=== PATIENT | male | born 1990 | race American Indian/Alaskan Native ===

== ENCOUNTER 2017-12-18 22:36 | Emergency (ER) | payer OTHER ==
[2017-12-18 23:32] VITALS: TEMP 98.6; BMI 27.9
[2017-12-18] MEDS ORDERED: DiphenhydrAMINE 50 mg/ml Inj IVP STA (23:56)
[2017-12-18] MEDS ORDERED: Sodium Chloride 0.9% 1,000 ML IV STA (23:56)
--- NOTE | 2017-12-19 00:10 | ED PDOC ---
Arrival/HPI <Rikki Bustamante - Last Filed: 12/19/17 01:18> - General Historian: Patient - History of Present Illness Narrative History of Present Illness (Text): 12/19/17 00:08 27 yo M complaining of intermittent throbbing L sided headache associated with photosensitivity and phonosensitivity x 1 month. States that there are no exacerbating factors, the headache last for several hours, takes motrin 800 mg with improvement but then the headache recurs. States that he had similar headaches as a teen, at 12 yo he had to see a neurologist, had CT of his head which were normal and was Dx with migraines. Otherwise he has no fever, chills, URI, N/V, trauma, injury, neck pain, dizziness, focal numbness or weakness. Has no other complaints. 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 PMD none <Juanis Mathews PA-C - Last Filed: 12/19/17 01:33> - General Chief Complaint: Headache Time Seen by Provider: 12/18/17 22:43 Past Medical History - Psychiatric Hx Substance Use: No - Anesthesia Hx Anesthesia: No <Juanis Mathews PA-C - Last Filed: 12/19/17 01:33> Family/Social History Family/Social History: No Known Family HX Smoking Status: Never Smoked Hx Alcohol Use: Yes Frequency of alcohol use: Socially Hx Substance Use: No <Juanis Mathews PA-C - Last Filed: 12/19/17 01:33> Allergies/Home Meds <Rikki Bustamante - Last Filed: 12/19/17 01:18> <Juanis Mathews PA-C - Last Filed: 12/19/17 01:33> Allergies/Adverse Reactions: Allergies No Known Allergies Allergy (Verified 12/18/17 23:32) Review of Systems - Review of Systems Constitutional: absent: Fatigue, Fevers Respiratory: absent: SOB, Cough Cardiovascular: absent: Chest Pain, Palpitations Gastrointestinal: absent: Abdominal Pain, Diarrhea, Vomiting Musculoskeletal: absent: Arthralgias, Back Pain, Neck Pain Skin: absent: Rash, Pruritis, Skin Lesions Neurological: Headache. absent: Dizziness, Focal Weakness <Juanis Mathews PA-C - Last Filed: 12/19/17 01:33> Physical Exam Vital Signs Temp Pulse Resp BP Pulse Ox 12/18/17 23:30 98.6 F 76 18 140/85 100 <Rikki Bustamante - Last Filed: 12/19/17 01:18> Vital Signs Temp Pulse Resp BP Pulse Ox 12/18/17 23:30 98.6 F 76 18 140/85 100 Temperature: Afebrile Blood Pressure: Normal Pulse: Regular Respiratory Rate: Normal Appearance: Positive for: Well-Appearing, Non-Toxic, Comfortable Pain Distress: Mild Mental Status: Positive for: Alert and Oriented X 3 - Systems Exam Head: Present: Atraumatic, Normocephalic Pupils: Present: PERRL Extroacular Muscles: Present: EOMI Conjunctiva: Present: Normal Mouth: Present: Moist Mucous Membranes Neck: Present: Normal Range of Motion. No: Meningeal Signs, Lymphadenopathy Respiratory/Chest: Present: Clear to Auscultation, Good Air Exchange. No: Respiratory Distress, Accessory Muscle Use Cardiovascular: Present: Regular Rate and Rhythm, Normal S1, S2. No: Murmurs Abdomen: No: Tenderness, Distention, Peritoneal Signs Back: Present: Normal Inspection Upper Extremity: Present: Normal Inspection. No: Cyanosis, Edema Lower Extremity: Present: Normal Inspection. No: Edema Neurological: Present: GCS=15, CN II-XII Intact, Speech Normal, Motor Func Marry ssly Intact, Normal Sensory Function Skin: Present: Warm, Dry, Normal Color. No: Rashes Psychiatric: Present: Alert, Oriented x 3, Normal Insight, Normal Concentration <Juanis Mathews PA-C - Last Filed: 12/19/17 01:33> Medical Decision Making - RAD Interpretation Radiology Orders: 12/18/17 23:56 HEAD W/O CONTRAST [CT] Stat - Medication Orders Current Medication Orders: Discontinued Medications Diphenhydramine HCl (Benadryl) 25 mg IVP STAT STA Stop: 12/18/17 23:57 Last Admin: 12/19/17 01:01 Dose: 25 mg IVP Administration Document 12/19/17 01:01 OCS (Rec: 12/19/17 01:01 OCS [id number]) Charges for Administration # of IVP Administrations 1 Sodium Chloride (Sodium Chloride 0.9%) 1,000 mls @ 1,000 mls/hr IV .Q1H STA Stop: 12/19/17 00:55 Last Admin: 12/19/17 01:00 Dose: 1,000 mls/hr eMAR Start Stop Document 12/19/17 01:00 OCS (Rec: 12/19/17 01:01 [facility] [id number]) Intravenous Solution Start Date 12/19/17 Start Time 01:00 End Date 12/19/17 End time 02:00 Total Infusion Time 60 Metoclopramide HCl (Reglan) 10 mg IVP STAT STA Stop: 12/18/17 23:57 Last Admin: 12/19/17 01:01 Dose: 10 mg IVP Administration Document 12/19/17 01:01 OCS (Rec: 12/19/17 01:01 [id number] Charges for Administration # of IVP Administrations 1 <RobbyRikki - Last Filed: 12/19/17 01:18> ED Course and Treatment: 12/19/17 00:06 Plan : - IV - NS bolus IV - Reglan IV - Benadryl IV - CT head CT head w/o contrast : Normal size of the ventricles and extra-axial spaces for the patient's age. Normal white matter tracts of the supratentorial brain. Normal basal ganglia and thalami. Normal brainstem. Normal cerebellum. There is no demonstrated extra-axial, intraparenchymal, or intraventricular hemorrhage. There are no findings of an acute ischemic infarction. Normal calvarium. There is no demonstrated fracture. Normal soft tissue structures. Normal visualized paranasal sinuses. IMPRESSION: Normal unenhanced CT scan of the brain. Electronically signed on Dec 19, 2017 1:02:01 AM EST by: Johanny Holland M.D., Certified by [employer], [facility], Neuroradiology 12/19/17 01:12 On re-evaluation, patient reports improvement of his headache. On exam, patient remains AAOx3 in no acute distress. Repeat neuro exam shows no focal findings. CT results d/w the patient. Advised to follow up with neurology referral in 1-2 days without fail. Take medication as prescribed. Return to the ER at any time for any new or worsening symptoms - RAD Interpretation Radiology Orders: 12/18/17 23:56 HEAD W/O CONTRAST [CT] Stat - Medication Orders Current Medication Orders: Sodium Chloride (Sodium Chloride 0.9%) 1,000 mls @ 1,000 mls/hr IV .Q1H STA Stop: 12/19/17 00:55 Discontinued Medications Diphenhydramine HCl (Benadryl) 25 mg IVP STAT STA Stop: 12/18/17 23:57 Metoclopramide HCl (Reglan) 10 mg IVP STAT STA Stop: 12/18/17 23:57 <Juanis Mathews PA-C - Last Filed: 12/19/17 01:33> - PA / PARTS ASSEMBLER / Resident Statement ALICIA has reviewed & agrees with the documentation as recorded. ALICIA has examined the patient and agrees with the treatment plan. <Rikki Bustamante - Last Filed: 12/19/17 01:18> - PA / PARTS ASSEMBLER / Resident Statement ALICIA has reviewed & agrees with the documentation as recorded. <Juanis Mathews PA-C - Last Filed: 12/19/17 01:33> Disposition/Present on Arrival <Rikki Bustamante - Last Filed: 12/19/17 01:18> - Present on Arrival Any Indicators Present on Arrival: No History of DVT/PE: No History of Uncontrolled Diabetes: No Urinary Catheter: No History of Decub. Ulcer: No History Surgical Site Infection Following: None - Disposition Have Diagnosis and Disposition been Completed?: Yes Disposition Time: 01:15 Patient Plan: Discharge <Juanis Mathews PA-C - Last Filed: 12/19/17 01:33> - Disposition Diagnosis: Headache Disposition: HOME/ ROUTINE Patient Problems: Current Active Problems Problem Status Onset Headache Acute Condition: STABLE Discharge Instructions (ExitCare): Migraine Headache (DC) Additional Instructions: Follow up with neurology referral in 1-2 days without fail. Take medication as prescribed. Return to the ER at any time for any new or worsening symptoms. Prescriptions: Ibuprofen [Motrin Tab] 800 mg PO TID PRN #30 tab PRN Reason: Headache Metoclopramide [Reglan] 10 mg PO TID PRN #20 tab PRN Reason: Headache Referrals: Phil Delgado MD [Staff Provider] - Follow up with primary Forms: [employer] (E[place]ian), WORK NOTE
[2017-12-19 02:46] VITALS: BP 123/61; PULSE 65
[2017-12-19 02:51] VITALS: RESP 18; O2SAT 99
--- NOTE | 2017-12-19 09:10 | CT ---
Date of service: 12/19/2017 PROCEDURE: CT HEAD WITHOUT CONTRAST. HISTORY: headache COMPARISON: None available. TECHNIQUE: Axial computed tomography images were obtained through the head/brain without intravenous contrast. Radiation dose: Total exam DLP = 962.96 mGy-cm. This CT exam was performed using one or more of the following dose reduction techniques: Automated exposure control, adjustment of the mA and/or kV according to patient size, and/or use of iterative reconstruction technique. FINDINGS: HEMORRHAGE: No intracranial hemorrhage. BRAIN: No mass effect or edema. No atrophy or chronic microvascular ischemic changes. VENTRICLES: Unremarkable. No hydrocephalus. CALVARIUM: Unremarkable. PARANASAL SINUSES: Unremarkable as visualized. No significant inflammatory changes. MASTOID AIR CELLS: Unremarkable as visualized. No inflammatory changes. OTHER FINDINGS: The report concurs with the preliminary [facility] report IMPRESSION: No acute findings
== END 2017-12-19 02:11 | disposition home or self-care (01) ==
LOC: ED 22:36
DX: R51 Headache (principal)
CPT/HCPCS: 70450; 96361; 96374; 96375; 99285; J1200; J2765; J7030

== ENCOUNTER 2018-01-19 01:13 | Emergency (ER) | payer OTHER ==
[2018-01-19 01:36] VITALS: BMI 25.8
[2018-01-19 01:42] VITALS: TEMP 97.7; O2SAT 100
--- NOTE | 2018-01-19 01:46 | ED PDOC ---
Arrival/HPI - General Time Seen by Provider: 01/19/18 01:34 Historian: Patient - History of Present Illness Narrative History of Present Illness (Text): 01/19/18 01:45 Gómez Mota is a 27 year old male, whose past medical history includes migraines, who presents to the Emergency department complaining of left-sided headache with associated dizziness tonight. Patient states headaches is consistent with previous migraines and notes he has a history of chronic migraines. Patient states he has a prescription for Ibuprofen, which he took with no significant improvement. Patient denies any focal neurological deficits, weakness, recent trauma/injury, fever, chills, nausea, vomiting, back pain, neck pain, or any other complaints. Patient was recently seen in the Emergency department on 12/19/[address] Head performed, which was normal. Patient was advised to follow-up with neurology but report he did not. Symptom Onset: Gradual Symptom Course: Unchanged Activities at Onset: Light Context: Home Past Medical History - Provider Review Nursing Documentation Reviewed: Yes - Psychiatric Hx Substance Use: No - Anesthesia Hx Anesthesia: No Family/Social History - Physician Review Nursing Documentation Reviewed: Yes Family/Social History: Unknown Family HX Smoking Status: Never Smoked Hx Alcohol Use: Yes Hx Substance Use: No Allergies/Home Meds Allergies/Adverse Reactions: Allergies No Known Allergies Allergy (Verified 01/19/18 01:36) Review of Systems - Physician Review All systems were reviewed & negative as marked: Yes - Review of Systems Constitutional: Normal. absent: Fevers Eyes: Normal ENT: Normal Respiratory: Normal. absent: SOB, Cough Cardiovascular: Normal. absent: Chest Pain Gastrointestinal: Normal. absent: Abdominal Pain, Diarrhea, Nausea, Vomiting Genitourinary Male: Normal. absent: Dysuria, Frequency, Hematuria, Urinary Output Changes Musculoskeletal: Normal. absent: Back Pain, Neck Pain Skin: Normal. absent: Rash Neurological: Headache, Dizziness Endocrine: Normal Hemo/Lymphatic: Normal Psychiatric: Normal Physical Exam Vital Signs Reviewed: Yes Vital Signs Temp Pulse Resp BP Pulse Ox 01/19/18 01:41 97.7 F 67 18 137/85 100 Temperature: Afebrile Blood Pressure: Normal Pulse: Regular Respiratory Rate: Normal Appearance: Positive for: Well-Appearing, Non-Toxic, Comfortable Pain Distress: None Mental Status: Positive for: Alert and Oriented X 3 - Systems Exam Head: Present: Atraumatic, Normocephalic Pupils: Present: PERRL Extroacular Muscles: Present: EOMI Conjunctiva: Present: Normal Ears: Present: Normal, NORMAL TM, Normal Canal. No: Erythema, TM Bulging, Fluid, TM Perf Mouth: Present: Moist Mucous Membranes Pharnyx: Present: Normal. No: ERYTHEMA, EXUDATE, TONSILS ENLARGED, Peritonsilar Swelling, Uvular Deviation, Muffled/Hoarse Voice, Strider, Soft Palate/Uvular Edema Nose (External): Present: Atraumatic Nose (Internal): Present: Normal Inspection Neck: Present: Normal Range of Motion. No: Meningeal Signs, MIDLINE TENDERNESS, Paraspinal Tenderness Respiratory/Chest: Present: Clear to Auscultation, Good Air Exchange. No: Respiratory Distress, Accessory Muscle Use Cardiovascular: Present: Regular Rate and Rhythm, Normal S1, S2. No: Murmurs Abdomen: No: Tenderness, Distention, Peritoneal Signs Back: Present: Normal Inspection Upper Extremity: Present: Normal Inspection. No: Cyanosis, Edema Lower Extremity: Present: Normal Inspection. No: Edema Neurological: Present: GCS=15, CN II-XII Intact, Speech Normal, Motor Func Grossly Intact, Normal Sensory Function, Normal Cerebellar Funct Skin: Present: Warm, Dry, Normal Color. No: Rashes Psychiatric: Present: Alert, Oriented x 3, Normal Insight, Normal Concentration Medical Decision Making ED Course and Treatment: 01/19/18 01:45 Impression: 27 year old male complaining of left-sided migraine headache and dizziness tonight. Plan: -- Reglan -- Benadryl -- IV fluids -- Reassess and disposition Prior Visits: Notes and results from previous visits were reviewed. On 12/19/2017, pt was seen in the Emergency department for headache with associated photosensitivity. Pt had a CT Head performed, which showed a normal unenhanced CT of the brain and was discharged home on Motrin 800mg PO. Progress Notes: 01/19/18 04:06 On re-evaluation, patient feels better and is in no acute distress. Patient is stable for discharge. Patient was instructed to follow up with physician or return if symptoms worsen or new concerning symptoms arise. - Scribe Statement The provider has reviewed the documentation as recorded by the Dominique Clark Provider Scribe Attestation: All medical record entries made by the Scribe were at my direction and personally dictated by me. I have reviewed the chart and agree that the record accurately reflects my personal performance of the history, physical exam, medical decision making, and the department course for this patient. I have also personally directed, reviewed, and agree with the discharge instructions and disposition. Disposition/Present on Arrival - Present on Arrival Any Indicators Present on Arrival: No History of DVT/PE: No History of Uncontrolled Diabetes: No Urinary Catheter: No History Surgical Site Infection Following: None - Disposition Have Diagnosis and Disposition been Completed?: Yes Diagnosis: Migraine Disposition: HOME/ ROUTINE Disposition Time: 04:06 Condition: GOOD Discharge Instructions (ExitCare): Migraine Headaches in Adults Prescriptions: Acetaminophen/Butalbital/Caf [Fioricet] 1 tab PO QID #10 tab Referrals: Phil Delgado MD [Staff Provider] - Follow up with primary Forms: WORK NOTE
[2018-01-19] MEDS ORDERED: DiphenhydrAMINE 50 mg/ml Inj IVP ONE (01:47)
[2018-01-19] MEDS ORDERED: Sodium Chloride 0.9% 1,000 ML IV SCH (02:00)
[2018-01-19 05:35] VITALS: BP 128/74; PULSE 74; RESP 16
== END 2018-01-19 04:15 | disposition home or self-care (01) ==
LOC: ED 01:13
DX: G43.909 Migraine, unspecified, not intractable, without status migrainosus (principal)
CPT/HCPCS: 96374; 96375; 99285; J1200; J2765; J7030